=== PATIENT | female | born 1965 | race Caucasian/White ===

== ENCOUNTER → 2017-05-17 | Outpatient (CLI) | payer OTHER ==
[2017-05-18 00:48] LABS: RNP AB Interpretation NEGATIVE (NEGATIVE); Scleroderma SC-70 Ab Interp NEGATIVE (NEGATIVE)
== END | disposition home or self-care (01) ==
LOC: LABWHC1 16:13
PROVIDERS: ATTEND Internal Medicine
DX: M79.7 Fibromyalgia (principal)
CPT/HCPCS: 36415; 86225; 86235; 86698

== ENCOUNTER → 2017-05-22 | Outpatient (CLI) | payer OTHER ==
--- NOTE | 2017-05-23 10:22 | MM ---
Reason for exam: screening (asymptomatic). Last mammogram was performed 1 year and 9 months ago. History: Family history of breast cancer in cousin at age 44. Took hormonal contraceptives for 3 years. Physical Findings: A clinical breast exam by your physician is recommended on an annual basis and results should be correlated with mammographic findings. MG Screening Mammo w CAD Bilateral CC and MLO view(s) were taken. Prior study comparison: August 31, 2015, bilateral MG 3d screening mammo w/cad. August 04, 2014, bilateral MG screening mammo w CAD. No suspicious abnormality. No significant changes when compared with prior studies. ASSESSMENT: Negative, BI-RAD 1 RECOMMENDATION: Routine screening mammogram of both breasts in 1 year.
== END | disposition home or self-care (01) ==
LOC: RADMAMWWP 09:18
PROVIDERS: ATTEND Internal Medicine
DX: Z12.31 Encounter for screening mammogram for malignant neoplasm of breast (principal)

== ENCOUNTER → 2017-07-17 | Outpatient (CLI) | payer OTHER ==
--- NOTE | 2017-07-17 10:10 | US ---
EXAMINATION TYPE: US abdomen complete DATE OF EXAM: 07/17/2017 COMPARISON: NONE CLINICAL HISTORY: Abnormal Results Liver Function R94.5. Cholecystectomy, elevated liver enzymes EXAM MEASUREMENTS: Liver Length: 18.7 cm Gallbladder Wall: Surgically absent CBD: 0.8 cm Spleen: 10.2 cm Right Kidney: 10.3 x 4.0 x 5.7 cm Left Kidney: 10.6 x 4.6 x 4.6 cm Pancreas: visualized portions appear wnl Liver: enlarged Gallbladder: Surgically absent Evidence for sonographic Marte's sign: no CBD: wnl Spleen: wnl Right Kidney: no evidence of hydronephrosis or mass Left Kidney: limited evaluation due to overlying bowel content, visualized portions show no evidence of hydronephrosis or mass Upper IVC: wnl Abd Aorta: wnl The liver is homogenous. The intrahepatic portion of the IVC and visualized abdominal aorta are with in normal limits. The gallbladder is surgically absent. Common bile duct is within normal limits aft er cholecystectomy. The visualized portions of the pancreas are homogenous. The spleen is unremarka ble. Kidneys are symmetric and free of hydronephrosis. No renal lesions are seen. IMPRESSION: Possible hepatomegaly or prominent right hepatic lobe. No worrisome intrahepatic mass or ductal dilatation is seen.
== END | disposition home or self-care (01) ==
LOC: RADUSWWP 08:56
PROVIDERS: ATTEND Internal Medicine
DX: R94.5 Abnormal results of liver function studies (principal)
CPT/HCPCS: 76700

== ENCOUNTER → 2018-08-04 | Outpatient (CLI) | payer OTHER ==
[2018-08-04 11:16] LABS: Basophils % (A) 1 %; Eosinophils # (A) 0.1 k/uL (0-0.7); Eosinophils % (A) 3 %; HCT 40.8 % (34.0-46.0); HGB 14.1 gm/dL (11.4-16.0); Lymphocytes # (A) 1.4 k/uL (1.0-4.8); Lymphocytes % (A) 35 %; MCH 31.8 pg (25.0-35.0); MCHC 34.5 g/dL (31.0-37.0); MCV 92.1 fL (80.0-100.0); Mean Platelet Volume 7.2; Monocytes # (A) 0.4 k/uL (0-1.0); Monocytes % (A) 9 %; Neutrophils % (A) 50 %; Platelet Count 341 k/uL (150-450); RBC 4.43 m/uL (3.80-5.40)
[2018-08-04 11:25] LABS: Appearance,Urine Clear (Clear); Bilirubin,Urine Negative (Negative); Blood,Urine Negative (Negative); Color,Urine Light Yellow; Glucose,Urine (UA) Negative (Negative); Ketones,Urine Negative (Negative); Leukocyte Esterase,Urine Small (Negative); Nitrite,Urine Negative (Negative); PH, Urine 7.5 (5.0-8.0); Protein,Urine Negative (Negative); RBC,Urine <1 /hpf (0-5); Specific Gravity,Urine 1.005 (1.001-1.035); Squamous Epithelial Cell,Urine 2 /hpf (0-4); Urobilinogen,Urine <2.0 mg/dL (<2.0); WBC,Urine <1 /hpf (0-5)
[2018-08-04 11:52] LABS: ALT 21 U/L (9-52); AST 22 U/L (14-36); Albumin 4.1 g/dL (3.5-5.0); Alkaline Phosphatase 79 U/L (38-126); Anion Gap 8 mmol/L; Blood Urea Nitrogen 12 mg/dL (7-17); Calcium 9.9 mg/dL (8.4-10.2); Carbon Dioxide 26 mmol/L (22-30); Chloride 105 mmol/L (98-107); Cholesterol 176 mg/dL (<200); Creatine Kinase 46 U/L (30-135); Glucose 102 mg/dL (74-99); HDL Cholesterol 82 mg/dL (40-60); LDL Cholesterol,Calculated 84 mg/dL (0-99); Potassium 4.7 mmol/L (3.5-5.1); Sodium 139 mmol/L (137-145); Total Bilirubin 1.9 mg/dL (0.2-1.3); Total Protein 7.5 g/dL (6.3-8.2); Triglycerides 52 mg/dL (<150); Uric Acid 3.7 mg/dL (3.7-7.4)
--- NOTE | 2018-08-04 14:57 | XR ---
Left knee HISTORY: Left knee pain 3 views of the left knee Tricompartmental joint space marginal spurring is present, loss of joint space present in the medial compartment and greater at the patellofemoral joint. Alignment and bone mineralization are maintained . There is soft tissue swelling. No evident joint effusion. Osseous and present within the soft tissues. IMPRESSION: Osteoarthritis and additional findings above.
[2018-08-04 22:53] LABS: Hemoglobin A1C 4.3 % (4.0-6.0)
== END ==
LOC: RADXRMAIN 10:13
PROVIDERS: ATTEND Internal Medicine
DX: M17.12 Unilateral primary osteoarthritis, left knee (principal); G25.81 Restless legs syndrome; F41.9 Anxiety disorder, unspecified
CPT/HCPCS: 80053; 80061; 81001; 82306; 82550; 83036; 84439; 84443; 84550; 85025

== ENCOUNTER → 2019-03-09 | Outpatient (CLI) | payer OTHER ==
[2019-03-09 11:24] LABS: Basophils % (A) 1 %; Eosinophils # (A) 0.1 k/uL (0-0.7); Eosinophils % (A) 2 %; HCT 41.1 % (34.0-46.0); HGB 13.9 gm/dL (11.4-16.0); Lymphocytes # (A) 1.2 k/uL (1.0-4.8); Lymphocytes % (A) 29 %; MCH 31.1 pg (25.0-35.0); MCHC 33.7 g/dL (31.0-37.0); MCV 92.2 fL (80.0-100.0); Mean Platelet Volume 7.1; Monocytes # (A) 0.3 k/uL (0-1.0); Monocytes % (A) 8 %; Neutrophils # (A) 2.1 k/uL (1.3-7.7); Neutrophils % (A) 55 %; Platelet Count 302 k/uL (150-450); RBC 4.46 m/uL (3.80-5.40); RDW 13.1 % (11.5-15.5); WBC 3.9 k/uL (3.8-10.6)
[2019-03-09 15:50] LABS: Vitamin D 25 Hydroxy 27.4 ng/mL (30.0-100.0)
[2019-03-09 15:57] LABS: African American GFR (CKD) 116.3 (60.0-200.0); Albumin 4.2 g/dL (3.80-4.90); Albumin/Globulin Ratio 1.83 (1.60-3.17); Anion Gap 6.6 mmol/L (4.00-12.00); Calcium 9.4 mg/dL (8.7-10.3); Carbon Dioxide 27.4 mmol/L (21.6-31.8); Globulin 2.3 g/dL (1.6-3.3); Total Bilirubin 1.2 mg/dL (0.2-1.2); Total Protein 6.5 g/dL (6.2-8.2)
[2019-03-09 16:20] LABS: T4, Free (Free Thyroxine) 0.9 ng/dL (0.80-1.80)
[2019-03-09 17:17] LABS: Hemoglobin A1C 4.7 % (4.0-6.0)
== END | disposition home or self-care (01) ==
LOC: LABWHC1 10:34
PROVIDERS: ATTEND Internal Medicine
DX: K58.0 Irritable bowel syndrome with diarrhea (principal); E78.5 Hyperlipidemia, unspecified; N95.1 Menopausal and female climacteric states; E55.9 Vitamin D deficiency, unspecified
CPT/HCPCS: 36415; 80053; 80061; 82306; 83001; 83002; 83036; 84439; 84443; 85025

== ENCOUNTER → 2019-10-12 | Outpatient (CLI) | payer OTHER ==
--- NOTE | 2019-10-13 10:37 | MM ---
Reason for exam: screening (asymptomatic). Last mammogram was performed 2 years and 5 months ago. History: Patient is postmenopausal. Family history of breast cancer in mother at age 74 and breast cancer in cousin at age 44. Took hormonal contraceptives for 3 years. Physical Findings: A clinical breast exam by your physician is recommended on an annual basis and results should be correlated with mammographic findings. MG Screening Mammo w CAD Bilateral CC and MLO view(s) were taken. Prior study comparison: May 22, 2017, bilateral MG screening mammo w CAD. August 31, 2015, bilateral MG 3d screening mammo w/cad. The breast tissue is heterogeneously dense. This may lower the sensitivity of mammography. There is no discrete abnormality. No significant changes when compared with prior studies. ASSESSMENT: Negative, BI-RAD 1 RECOMMENDATION: Routine screening mammogram of both breasts in 1 year.
== END | disposition home or self-care (01) ==
LOC: RADMAMWWP 14:03
PROVIDERS: ATTEND Internal Medicine
DX: Z12.31 Encounter for screening mammogram for malignant neoplasm of breast (principal)
CPT/HCPCS: 77067

== ENCOUNTER → 2019-11-02 | Outpatient (CLI) | payer OTHER ==
--- NOTE | 2019-11-02 14:59 | XR ---
EXAM TYPE: LUMBAR SPINE X RAY SERIES COMPARISON: 08/31/2015 HISTORY: Lower back pain TECHNIQUE: 4 views are submitted. FINDINGS: Alignment is anatomic. The pedicles are intact. The transverse processes are intact. There is no s pondylolisthesis. Punctate densities in the abdomen could be bowel content rather than abdominal peewee cifications. There is severe degenerative disc disease L5-S1 with foraminal encroachment and facet ar thropathy. Moderate degenerative disc disease noted with hypertrophic spurring at remaining levels. N o compression deformities. A tiny well-corticated density off the superior endplate of L4 appears chr onic. Surgical clips in the gallbladder fossa. IMPRESSION: 1. Multilevel moderate to severe degenerative disc disease with most marked findings at L5-S1. Forami nal encroachment noted..
== END | disposition home or self-care (01) ==
LOC: RAD 14:38
PROVIDERS: ATTEND Internal Medicine
DX: M48.07 Spinal stenosis, lumbosacral region (principal); M51.37 Other intervertebral disc degeneration, lumbosacral region
CPT/HCPCS: 72100

== ENCOUNTER → 2020-06-29 | Outpatient (CLI) | payer OTHER ==
--- NOTE | 2020-06-29 13:17 | US ---
EXAMINATION TYPE: US liver DATE OF EXAM: 06/29/2020 COMPARISON: NONE CLINICAL HISTORY: E80.7 Elevated bilirubin. Elevated liver enzymes gallbladder removed EXAM MEASUREMENTS: Liver Length: 17 cm Gallbladder Wall: Surgically absent cm CBD: .7 cm Right Kidney: 10.7 x 4.6 x 4.8 cm Pancreas: Tail obscured by overlying bowel gas Liver: wnl Gallbladder: Surgically absent Evidence for sonographic Marte's sign: No CBD: wnl Right Kidney: wnl IMPRESSION: 1. Hepatomegaly
== END | disposition home or self-care (01) ==
LOC: RADUSWWP 08:14
PROVIDERS: ATTEND Internal Medicine
DX: R16.0 Hepatomegaly, not elsewhere classified (principal)
CPT/HCPCS: 76705

== ENCOUNTER 2020-11-23 08:55 | Day surgery (SDC) | payer OTHER ==
[2020-10-24 09:47] VITALS: BMI 37.8
[~2020-11-23 08:55] MED LIST: LACTATED RINGERS 1,000 ML IV SCH
[2020-11-23 09:44] VITALS: RESP 16; TEMP 98.1
[2020-11-23] MEDS ORDERED: LIDOCAINE 1% (10MG/ML) FOR IV START INTRADERMA ONE (09:46)
[2020-11-23] MEDS ORDERED: PROPOFOL 10 MG/ML 20 ML VIAL IV ONE (10:16)
--- NOTE | 2020-11-23 10:34 | P.PCN ---
Date of Procedure: 11/23/20 Procedure(s) Performed: BRIEF HISTORY: Patient is a 55-year-old pleasant male scheduled for an elective colonoscopy as a part of screening for colorectal neoplasia. PROCEDURE PERFORMED: Colonoscopy. PREOPERATIVE DIAGNOSIS: Screening for colon cancer. IV sedation per Anesthesia. PROCEDURE: After informed consent was obtained, the patient, was brought into the endoscopy unit. IV sedation was administered by Anesthesia under continuous monitoring. Digital rectal examination was normal. Initially the Olympus CF-160 flexible video colonoscope was then inserted in the rectum, gradually advanced into the cecum without any difficulty. Careful examination was performed as the scope was gradually being withdrawn. Ileocecal valve and the appendiceal orifice were visualized and appeared normal. Prep was excellent. Mucosa of the cecum, ascending colon, transverse colon, descending colon, sigmoid colon, and rectum appeared normal. Scattered left-sided diverticulosis seen. Retroflexion was performed in the rectum and no lesions were seen. The patient tolerated the procedure well. IMPRESSION: Normal-appearing colon from rectum to cecum with no evidence of colorectal neoplasia. . Scattered left-sided diverticulosis. RECOMMENDATIONS: Findings of this examination were discussed with the patient as well as a family. She was advised to have a repeat screening colonoscopy in 10 years..
[2020-11-23 10:58] VITALS: BP 140/71; PULSE 65
== END 2020-11-23 11:08 | disposition home or self-care (01) ==
LOC: ORWHC2ENDO 08:55
PROVIDERS: ATTEND Internal Medicine Gastroenterology
DX: Z12.11 Encounter for screening for malignant neoplasm of colon (principal); K57.30 Diverticulosis of large intestine without perforation or abscess without bleeding; Z79.899 Other long term (current) drug therapy; I89.0 Lymphedema, not elsewhere classified; K58.9 Irritable bowel syndrome, unspecified
CPT/HCPCS: J2704; G0121

== ENCOUNTER → 2021-03-29 | Outpatient (CLI) | payer MEDICARE, OTHER ==
[2021-03-29 10:49] LABS: Basophils % (A) 1 %; Eosinophils # (A) 0.1 k/uL (0-0.7); Eosinophils % (A) 1 %; HCT 41.8 % (34.0-46.0); HGB 14.3 gm/dL (11.4-16.0); Lymphocytes # (A) 1.4 k/uL (1.0-4.8); Lymphocytes % (A) 30 %; MCH 32.4 pg (25.0-35.0); MCHC 34.2 g/dL (31.0-37.0); MCV 94.7 fL (80.0-100.0); Mean Platelet Volume 8.3; Monocytes # (A) 0.4 k/uL (0-1.0); Monocytes % (A) 9 %; Neutrophils # (A) 2.6 k/uL (1.3-7.7); Neutrophils % (A) 57 %; Platelet Count 382 k/uL (150-450); RBC 4.42 m/uL (3.80-5.40); RDW 12.9 % (11.5-15.5); WBC 4.6 k/uL (3.8-10.6)
== END | disposition home or self-care (01) ==
LOC: LABPAT 09:22
PROVIDERS: ATTEND Obstetrics & Gynecology Obstetrics
DX: Z01.812 Encounter for preprocedural laboratory examination (principal); N95.0 Postmenopausal bleeding
CPT/HCPCS: 36415; 85025

== ENCOUNTER 2021-04-03 07:04 | Day surgery (SDC) | payer MEDICARE, OTHER ==
[2021-03-31 09:59] VITALS: BMI 37.4
[~2021-04-03 07:04] MED LIST changes: +DEXAMETHASONE SOD PHOSPHATE 4 MG/ML 1 ML VIAL IV ONE; +HYDROmorphone 0.5 MG/0.5 ML SYRINGE IVP PRN; +MIDAZOLAM 2 MG/2 ML VIAL IV PRN; +ONDANSETRON 4 MG/2 ML VIAL IVP ONE; +Pre Op ABX Message 1 EACH MISC MISCELLANE ONE; +SCOPOLAMINE 1.5MG/72HR PATCH TRANSDERM ONE
[2021-04-03] MEDS ORDERED: LACTATED RINGERS 1,000 ML IV ONE (07:26)
[2021-04-03] MEDS ORDERED: PROPOFOL 10 MG/ML 20 ML VIAL IV ONE (08:21)
[2021-04-03] MEDS ORDERED: MIDAZOLAM 2 MG/2 ML VIAL ONE (08:21)
[2021-04-03] MEDS ORDERED: LIDOCAINE 1% INJ 10MG/ML (20 ML MDV) ONE (08:21)
[2021-04-03] MEDS ORDERED: KETOROLAC 15 MG/ML 1 ML VIAL ONE (08:21)
[2021-04-03] MEDS ORDERED: fentaNYL (PF) 50 MCG/ML 2 ML AMP ONE (08:21)
--- NOTE | 2021-04-03 08:36 | P.HPOB ---
History of Present Illness H&P Date: 04/03/21 Chief Complaint: Postmenopausal bleeding, endometrial polyp This is a 55-year-old female who was evaluated for postmenopausal bleeding. Ultrasound noted to endometrial polyps, she has had a single episode of postmenopausal bleeding. Patient denies pelvic pain. She is postmenopausal, and states she is not on any hormone replacement therapy. Review of Systems Constitutional: Denies fatigue, Denies fever Ears, nose, mouth and throat: Denies headache Cardiovascular: Denies leg edema Gastrointestinal: Denies constipation, Denies diarrhea, Denies nausea, Denies vomiting Genitourinary: Reports as per HPI, Denies Past Medical History Past Medical History: Osteoarthritis (OA) History of Any Multi-Drug Resistant Organisms: None Reported Past Surgical History: Cholecystectomy, Tonsillectomy Past Anesthesia/Blood Transfusion Reactions: No Reported Reaction Smoking Status: Never smoker - Past Family History Mother Family Medical History: Cancer Additional Family Medical History / Comment(s): BREAST CANCER Medications and Allergies Home Medications Medication Instructions Recorded Confirmed Type Cholecalciferol [Vitamin D3 (25 50 mcg PO BID 10/24/20 03/31/21 History Mcg = 1000 Iu)] DULoxetine HCL [Cymbalta] 60 mg PO BID 10/24/20 03/31/21 History Etodolac [Lodine] 400 mg PO BID 10/24/20 03/31/21 History Folic Acid 0.4 mg PO DAILY 10/24/20 03/31/21 History Loperamide [Imodium] 2 mg PO BID 10/24/20 03/31/21 History Vitamin B Complex 1 each PO DAILY 10/24/20 03/31/21 History clonazePAM [KlonoPIN] 0.5 mg PO HS 10/24/20 03/31/21 History Allergies Allergy/AdvReac Type Severity Reaction Status Date / Time No Known Allergies Allergy Verified 03/31/21 09:22 Exam Osteopathic Statement: *. No significant issues noted on an osteopathic structural exam other than those noted in the History and Physical/Consult. 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 Assessment and Plan (1) PMB (postmenopausal bleeding) Current Visit: Yes Status: Acute Code(s): N95.0 - POSTMENOPAUSAL BLEEDING SNOMED Code(s): 31246240 (2) Endometrial polyp Current Visit: Yes Status: Acute Code(s): N84.0 - POLYP OF CORPUS UTERI SNOMED Code(s): 42188732 Plan: 55-year-old female with complaints of postmenopausal bleeding. Patient presents to the hospital today for hysteroscopy, dilation and curettage given endometrial polyps visualized on ultrasound and history of post proposal bleeding. Surgery is reviewed and all questions are answered. Patient states understanding and will proceed to the operating suite.
--- NOTE | 2021-04-03 08:53 | P.OP ---
Date of Procedure: 04/03/21 Preoperative Diagnosis: Post menopausal bleeding, endometrial polyps Postoperative Diagnosis: Same Procedure(s) Performed: Hysteroscopy, dilation and curettage Anesthesia: MAC Surgeon: Bridget Osullivan Estimated Blood Loss (ml): 5 IV fluids (ml): 400 Urine output (ml): 100 Pathology: other (Endometrial curettings) Condition: stable Disposition: PACU Indications for Procedure: Post menopausal bleeding, ultrasound revealing endometrial polyps. Operative Findings: Proliferative endometrium Description of Procedure: Patient was taken back to the operating suite where general anesthesia was obtained without difficulty by the anesthesia department. She was prepped and draped in the normal sterile fashion in the dorsal lithotomy position. I [place] catheter was used to drain the bladder clear yellow urine. Weighted speculum posterior vaginal vault. The anterior lip of the cervix was visualized and grasped with a single-tooth tenaculum. The endocervical canal was then dilated. Hysteroscope was placed through the cervix and into the endometrial cavity. The above-noted findings were visualized. Uterine sound was advanced, uterine cavity noted to be 8 cm. A sharp curettage was then performed until gritty texture was noted in all 4 quadrants of the endometrial cavity. A moderate S been was obtained. The single-tooth tenaculum was taken off of the anterior lip of the cervix, hemostasis was appreciated. All instruments removed from the patient's vaginal vault. Patient tolerated procedure well and was taken the recovery room awake in stable condition. All counts were noted to be correct 2 at the end the procedure.
[2021-04-03 09:04] VITALS: TEMP 97.6
[2021-04-03] MEDS ORDERED: ACETAMINOPHEN TAB 500 MG TAB ONE (10:02)
[2021-04-03 10:18] VITALS: RESP 18
[2021-04-03 10:23] VITALS: BP 127/66; PULSE 72
== END 2021-04-03 10:38 | disposition home or self-care (01) ==
LOC: OR 07:04
PROVIDERS: ATTEND Obstetrics & Gynecology Obstetrics
DX: N84.0 Polyp of corpus uteri (principal); M79.7 Fibromyalgia; R59.1 Generalized enlarged lymph nodes; K58.9 Irritable bowel syndrome, unspecified; M19.90 Unspecified osteoarthritis, unspecified site; N95.0 Postmenopausal bleeding; Z80.3 Family history of malignant neoplasm of breast; Z90.49 Acquired absence of other specified parts of digestive tract
CPT/HCPCS: 58563; 88305; J2250; J1100; J2405; J2001; J3010; J1885; J2704; J1170

== ENCOUNTER → 2021-04-18 | Outpatient (CLI) | payer MEDICARE, OTHER ==
--- NOTE | 2021-04-19 10:25 | MM ---
Reason for exam: screening (asymptomatic). Last mammogram was performed 1 year and 6 months ago. History: Patient is postmenopausal. Family history of breast cancer in mother at age 74 and breast cancer in cousin at age 44. Took hormonal contraceptives for 3 years. Physical Findings: A clinical breast exam by your physician is recommended on an annual basis and results should be correlated with mammographic findings. MG 3D Screening Mammo W/Cad Bilateral CC and MLO view(s) were taken. Prior study comparison: October 12, 2019, bilateral MG screening mammo w CAD. May 22, 2017, bilateral MG screening mammo w CAD. The breast tissue is heterogeneously dense. This may lower the sensitivity of mammography. Stable benign calcifications. There is no discrete abnormality. No significant changes when compared with prior studies. ASSESSMENT: Benign, BI-RAD 2 RECOMMENDATION: Routine screening mammogram of both breasts in 1 year.
== END | disposition home or self-care (01) ==
LOC: RADMAMWWP 08:40
PROVIDERS: ATTEND Internal Medicine
DX: Z12.31 Encounter for screening mammogram for malignant neoplasm of breast (principal); Z78.0 Asymptomatic menopausal state; Z80.3 Family history of malignant neoplasm of breast
CPT/HCPCS: 77063; 77067

== ENCOUNTER → 2022-01-12 | Outpatient (CLI) | payer MEDICARE, OTHER ==
--- NOTE | 2022-01-12 09:42 | XR ---
EXAMINATION TYPE: XR wrist complete RT DATE OF EXAM: 01/12/2022 COMPARISON: NONE HISTORY: Pain TECHNIQUE: Four views submitted. FINDINGS: There is narrowing of the first carpal metacarpal joint. There is tiny bony density seen adjacent to the base of the first metacarpal. Remaining osseous structures intact. No evidence of dislocation. IMPRESSION: 1. Osteoarthritis of the first carpal metacarpal joint. 2. There is a tiny bony density seen adjacent to the base of the first metacarpal which could be rela oksana to previous avulsion fractures or trauma correlate clinically.
== END | disposition home or self-care (01) ==
LOC: RADXRMAIN 09:02
PROVIDERS: ATTEND Internal Medicine
DX: M19.041 Primary osteoarthritis, right hand (principal)

== ENCOUNTER → 2023-02-14 | Outpatient (CLI) | payer OTHER ==
--- NOTE | 2023-02-14 14:51 | XR ---
EXAM TYPE: LUMBAR SPINE X RAY SERIES COMPARISON: 11/02/2019 HISTORY: Pain TECHNIQUE: 3 views are submitted. FINDINGS: Alignment is anatomic. The pedicles are intact. The transverse processes are intact. There is mult ilevel moderate to severe degenerative disc disease most marked at L5-S1 with vacuum disc. Multilevel facet arthropathy most marked at L5-S1 with foraminal encroachment suspected. There is a grade 1 anterolisthesis of L4 on L5. Diffuse osteopenia. Radiopaque densities overlying th e abdomen likely related to bowel contents. Postcholecystectomy clips noted. IMPRESSION: 1. Multilevel moderate to severe degenerative disc disease most marked at L5-S1 with suspected forami nal encroachment and severe facet arthropathy. 2. Grade 1 anterolisthesis L4 on L5. Recommend MRI.
== END | disposition home or self-care (01) ==
LOC: RADXRMAIN 14:12
PROVIDERS: ATTEND Internal Medicine
DX: M51.37 Other intervertebral disc degeneration, lumbosacral region (principal); M43.16 Spondylolisthesis, lumbar region; M54.41 Lumbago with sciatica, right side
CPT/HCPCS: 72100

== ENCOUNTER → 2023-04-11 | Outpatient (CLI) | payer OTHER ==
[2023-04-11 09:32] VITALS: BP 114/79; PULSE 78; RESP 15; TEMP 98.1
--- NOTE | 2023-04-11 14:31 | P.PAINPG ---
PQRS Measure Charge Sheet Comment: HISTORY OF PRESENT ILLNESS: 57 yr old female as a referral from presents today w severe and chronic LBP x 1 yr secondary to DDD, spondylosis and facet arthropathy without myelopathy for evaluation. Pt states pain level is provoked at 8/10 in intensity, constant, localized in the lumbar spine, achy in character w shooting pain towards buttocks and BLEs. Pain is provoked by over activity. Pain is alleviated by heat, medications (Tramadol), Biofreeze, repositioning and rest. Pt lives in [place] and does not have a PT facility that accepts her insurance. She can not drive 40 min to [place] for PT twice weekly as she can not sit in a vehicle greater than 10 min due to intractable pain. Oswestry axial pain score at 24. PMH: OA PSH: Cholecystectomy, Tonsillectomy SH: Negative x3. Works in housekeeping. FH: Mo- Breast CA All: See list Meds: See list REVIEW OF ORGAN SYSTEMS: CONSTITUTIONAL: No fevers or chills. No recent weight loss. NEUROLOGICAL: + numbness and tingling along the distal extremities. No seizure disorders or headaches. MUSCULOSKELETAL: + pain PSYCHIATRIC: Denies current depression or suicidal thoughts. Physical Examinations : Constitutional : Cooperative , not in acute distress . Neurologic : Cranial nerve II to XII intact. No focal neurological deficits. Psychiatric : alert & oriented x 3. Matching mood & appropriate affect. Judgment & insight intact. Musculoskeletal : Cervical Spine Motor strength in the deltoid and biceps: Normal right side. Normal Left side Motor strength biceps and the wrist extensors: Normal right side . Normal left side Motor strength in the triceps muscle: Normal right side. Normal left side Deep tendon reflexes: Normal at the biceps. Normal at Brachioradialis. Normal at triceps Vertebral body tenderness to deep palpation over Cervical facet loading test: positive bilaterally Spurling test: positive bilaterally Neck distraction test: positive bilaterally Irma sign: positive bilaterally Lumbar spine Motor strength lower extremities ,thigh and legs 5/5 Right side , 5/5 Left side Deep tendon reflexes : Normal Knee Jerk. Normal Ankle Jerk Vertebral body tenderness over L5 Cortez Test positive Lumbar facet Loading Test: positive Right / positive Left Range of motion of the lumbar spine Flexion 30 degrees, extension 10 degrees Straight Leg Raise test: Left/ Right positive at degree Hector test: positive right / positive left. Severe tenderness over the Sacroiliac joint on the Right / Left sides Gaenslen test: positive bilaterally Seated flexion test: positive bilaterally. Sacral spine : Severe tenderness over the Sacroiliac joint: right side / left side Range of motion: Flexion of the lumbar spine <60 degrees Range of motion: Extension of the lumbar spine <20 degrees Gaenslen's Test positive Tom's Test positive Hector test: positive right side / left side Thigh Thrust Test Sacral Thrust Test Imaging: MRI noncontrast of the lumbar spine from 03/28/23 reviewed Assessment/ Plan : Lumbar stenosis, Lumbar DDD Recommendation of SHAYLA L5-S1. May need a series of injections for optimal pain relief. Risks, benefits of procedure discussed and patient verbalized understanding. Admits to aspirin or anti- coagulant use or medical history of diabetes. Protocol for discontinuation/ continuation of medications yoselin procedure discussed. Minimal anesthesia provided, if clinically indicated, consisting of Versed and Fentanyl. All questions answered. I have spent greater than 30 minutes on patient care today. Dr Chauhan was available by phone for the evaluation of this patient. The time was used to review the medical records including relevant urine studies and Prescription history (MAPs), review of the available imaging, evaluation and examination of the patient, coordination of care with the medical staff and if applicable referring physicians, as well as creation of the medical record Home Medications: Ambulatory Orders Cholecalciferol [Vitamin D3 (25 Mcg = 1000 Iu)] 50 mcg PO BID 10/24/20 DULoxetine HCL [Cymbalta] 60 mg PO BID 10/24/20 Etodolac [Lodine] 400 mg PO BID 10/24/20 Folic Acid 0.4 mg PO DAILY 10/24/20 Loperamide [Imodium] 2 mg PO BID 10/24/20 Vitamin B Complex 1 each PO DAILY 10/24/20 clonazePAM [KlonoPIN] 0.5 mg PO HS 10/24/20 Controlled Substance Measures - Controlled Substance Measures Is patient prescribed a controlled substance at discharge?: No
== END ==
LOC: PNWHC3 08:50
PROVIDERS: ATTEND Anesthesiology
DX: M51.36 Other intervertebral disc degeneration, lumbar region (principal); M48.061 Spinal stenosis, lumbar region without neurogenic claudication
CPT/HCPCS: 99211

== ENCOUNTER 2023-04-30 07:49 | Day surgery (SDC) | payer OTHER ==
[2023-04-30] MEDS ORDERED: LACTATED RINGERS 1,000 ML IV SCH (08:06)
[2023-04-30 08:13] VITALS: TEMP 96.9
[2023-04-30] MEDS ORDERED: IOPAMIDOL M200 10 ML VIAL ONE (08:35)
[2023-04-30] MEDS ORDERED: methylPREDNISolone ACETATE 80 MG/ML 1 ML VIAL ONE (08:35)
--- NOTE | 2023-04-30 08:41 | P.PCN ---
Date of Procedure: 04/30/23 Procedure(s) Performed: PREOPERATIVE DIAGNOSIS: 1- Lumbar Degenerative Disc Diseases 2-Lumbar spondylosis with Facet arthropathy without myelopathy. 3-lumbar spinal stenosis POSTOPERATIVE DIAGNOSIS: 1-lumbar degenerative disc disease. 2-lumbar spondylosis with facet arthropathy without myelopathy. 3-lumbar spinal stenosis. PROCEDURE 1. Lumbar epidural steroid injection under fluoroscopic guidance at the L5-S1 level. (Fluoroscopy imaging was available in radiology department) 2. Lumbar epidurogram. ANESTHESIA: Lidocaine 1% 3 and then only. EBL: Minimal PROCEDURE INDICATION: The patient with low back pain and radiculitis symptoms unresponsive to conservative treatment. Fluoroscopy was used to optimize visualization of the needle placement and to maximize safety. PROCEDURE DESCRIPTION / TECHNIQUE: The patient was seen and identified in the preoperative area. Risks, benefits, complications including but not limited to infections ,bleeding ,allergic reaction to the medications ,nerve damage and not complete pain releife , and alternatives were discussed with the patient. The patient agreed to proceed with the procedure and signed the consent, and vital signs were stable. Patient was taken to the OR and time out was completed. The patient was placed in the prone position on procedure table and a pillow was placed under the abdomen to reduce lumbar lordosis. The lumbosacral area was prepped and draped in the usual sterile fashion.ere closely monitored during the procedure. Vital signs was monitered during the entire procedure. Using anterior-posterior fluoroscopy, the L5-S1 interlaminar space was identified and the skin over this site was marked and then infiltrated with 1% lidocaine subcutaneously. Subsequently, a 20-gauge Tuohy epidural needle was inserted and advanced toward the epidural space using the ``Loss of resistance technique and guided by AP and lateral fluoroscopy. The correct needle position in the epidural space was verified with the injection of 2 mL of the water soluble contrast dye Isovue 200 contrast and observing an excellent epidurogram with the epidural spread of the dye, after negative aspiration for blood and CSF and in the absence of paresthesias. Again after negative aspiration, a 6 ml mixture containing 80 mg of Depo-medrol ( Preservetive Free ), and 2 ml of preservative free Normal Saline, and 2 ml of preservative free lidocaine 1% solution was injected and a washout of epidurogram was seen. Needle was withdrawn intact, skin was cleansed, and bandages were applied. COMPLICATIONS: None DISPOSITION / PLANS: The patient was placed in a supine position and transferred to the recovery area in a stable condition for observation. There was no evidence of lower extremity motor or sensory deficit after the procedure. Patient was discharged from the recovery room after meeting discharge criteria. Home discharge instructions were given to the patient by the staff. The patient was reexamined prior to discharge. The patient will schedule a follow up in the clinic in 2-4 weeks.
[2023-04-30 09:26] VITALS: BP 111/73; PULSE 71; RESP 18
--- NOTE | 2023-04-30 09:31 | FL ---
Intraoperative/procedural fluoroscopic services were provided. Total fluoroscopy time is 2.3 seconds with a total of 1 submitted images to PACS. Please see the operative/procedural note for further deta ils. DAP: [id number] [id number]
== END 2023-04-30 09:31 | disposition home or self-care (01) ==
LOC: ORPAIN 07:49
PROVIDERS: ATTEND Specialist
DX: M51.16 Intervertebral disc disorders with radiculopathy, lumbar region (principal); M47.816 Spondylosis without myelopathy or radiculopathy, lumbar region; M48.061 Spinal stenosis, lumbar region without neurogenic claudication
CPT/HCPCS: 62323; J1040; Q9966

== ENCOUNTER → 2023-06-24 | Outpatient (CLI) | payer OTHER ==
[2023-06-24 10:06] VITALS: BP 126/85; PULSE 96; RESP 16; TEMP 97.8
--- NOTE | 2023-06-24 14:21 | P.PAINPG ---
PQRS Measure Charge Sheet Comment: HISTORY OF PRESENT ILLNESS: 57 yr old female presents today w severe and chronic LBP x 1 yr secondary to DDD, spondylosis and facet arthropathy without myelopathy for evaluation s/p SHAYLA L5-S1 #1. Pt states she experienced 75% pain relief x 7 wks s/p procedure. Pt states pain level is provoked at 9/10 in intensity, constant, localized in the lumbar spine, achy in character w shooting pain towards buttocks and BLEs. Pain is provoked by over activity. Pain is alleviated by heat, medications, Biofreeze, repositioning and rest. Pt lives in [place] and does not have a PT facility that accepts her insurance. She can not drive 40 min to [place] for PT twice weekly as she can not sit in a vehicle greater than 10 min due to intractable pain. Oswestry axial pain score at 15. Interventional procedures include SHAYLA L5-S1 x1 Medications include Tramadol, Biofreeze gel REVIEW OF ORGAN SYSTEMS: CONSTITUTIONAL: No fevers or chills. No recent weight loss. NEUROLOGICAL: + numbness and tingling along the distal extremities. No seizure disorders or headaches. MUSCULOSKELETAL: + pain PSYCHIATRIC: Denies current depression or suicidal thoughts. Physical Examinations : Constitutional : Cooperative , not in acute distress . Neurologic : Cranial nerve II to XII intact. No focal neurological deficits. Psychiatric : alert & oriented x 3. Matching mood & appropriate affect. Judgment & insight intact. Musculoskeletal : Cervical Spine Motor strength in the deltoid and biceps: Normal right side. Normal Left side Motor strength biceps and the wrist extensors: Normal right side . Normal left side Motor strength in the triceps muscle: Normal right side. Normal left side Deep tendon reflexes: Normal at the biceps. Normal at Brachioradialis. Normal at triceps Vertebral body tenderness to deep palpation over Cervical facet loading test: positive bilaterally Spurling test: positive bilaterally Neck distraction test: positive bilaterally Irma sign: positive bilaterally Lumbar spine Motor strength lower extremities ,thigh and legs 5/5 Right side , 5/5 Left side Deep tendon reflexes : Normal Knee Jerk. Normal Ankle Jerk Vertebral body tenderness over L5 Cortez Test positive Lumbar facet Loading Test: positive Right / positive Left Range of motion of the lumbar spine Flexion 30 degrees, extension 10 degrees Straight Leg Raise test: Left< Right positive at <40 degrees Hector test: positive right / positive left. Severe tenderness over the Sacroiliac joint on the Right / Left sides Gaenslen test: positive bilaterally Seated flexion test: positive bilaterally. Sacral spine : Severe tenderness over the Sacroiliac joint: right side / left side Range of motion: Flexion of the lumbar spine <60 degrees Range of motion: Extension of the lumbar spine <20 degrees Gaenslen's Test positive Tom's Test positive Hector test: positive right side / left side Thigh Thrust Test Sacral Thrust Test Imaging: MRI noncontrast of the lumbar spine from 03/28/23 reviewed Assessment/ Plan : Lumbar stenosis, Lumbar DDD Recommendation of SHAYLA L5-S1 #2. May need a series of injections for optimal pain relief. Risks, benefits of procedure discussed and patient verbalized understanding. Protocol for discontinuation/continuation of medications surrounding procedure discussed. All questions answered. I have spent greater than 30 minutes on patient care today. Dr Chauhan was available by phone for the evaluation of this patient. The time was used to revi ew the medical records including relevant urine studies and Prescription history (MAPs), review of the available imaging, evaluation and examination of the patient, coordination of care with the medical staff and if applicable referring physicians, as well as creation of the medical record PQRS Narrative: Hx Alcohol Use (MH) No Home Medications: Ambulatory Orders Cholecalciferol [Vitamin D3 (25 Mcg = 1000 Iu)] 50 mcg PO BID 10/24/20 DULoxetine HCL [Cymbalta] 60 mg PO BID 10/24/20 Etodolac [Lodine] 400 mg PO BID 10/24/20 Folic Acid 0.4 mg PO DAILY 10/24/20 Loperamide [Imodium] 2 mg PO BID PRN 10/24/20 Vitamin B Complex 1 each PO DAILY 10/24/20 clonazePAM [KlonoPIN] 0.5 mg PO HS 10/24/20 Ezetimibe [Zetia] 10 mg PO QAM 04/29/23 Controlled Substance Measures - Controlled Substance Measures Is patient prescribed a controlled substance at discharge?: No
== END ==
LOC: PNWHC3 07:43
PROVIDERS: ATTEND Specialist
DX: M51.36 Other intervertebral disc degeneration, lumbar region (principal); M48.061 Spinal stenosis, lumbar region without neurogenic claudication
CPT/HCPCS: 99211

== ENCOUNTER 2023-07-11 06:53 | Day surgery (SDC) | payer OTHER ==
[~2023-07-11 06:53] MED LIST changes: -DEXAMETHASONE SOD PHOSPHATE 4 MG/ML 1 ML VIAL IV ONE; -HYDROmorphone 0.5 MG/0.5 ML SYRINGE IVP PRN; -MIDAZOLAM 2 MG/2 ML VIAL IV PRN; -ONDANSETRON 4 MG/2 ML VIAL IVP ONE; -Pre Op ABX Message 1 EACH MISC MISCELLANE ONE; -SCOPOLAMINE 1.5MG/72HR PATCH TRANSDERM ONE
[2023-07-11 07:32] VITALS: TEMP 98.7
[2023-07-11] MEDS ORDERED: IOPAMIDOL M200 10 ML VIAL ONE (07:35)
[2023-07-11] MEDS ORDERED: methylPREDNISolone ACETATE 80 MG/ML 1 ML VIAL ONE (07:35)
--- NOTE | 2023-07-11 07:40 | P.PCN ---
Date of Procedure: 07/11/23 Procedure(s) Performed: PREOPERATIVE DIAGNOSIS: 1- Lumbar Degenerative Disc Diseases 2-Lumbar spondylosis with Facet arthropathy without myelopathy. 3-lumbar spinal stenosis POSTOPERATIVE DIAGNOSIS: 1-lumbar degenerative disc disease. 2-lumbar spondylosis with facet arthropathy without myelopathy. 3-lumbar spinal stenosis. PROCEDURE 1. Lumbar epidural steroid injection under fluoroscopic guidance at the L5-S1 level. (Fluoroscopy imaging was available in radiology department) 2. Lumbar epidurogram. ANESTHESIA: Lidocaine 1% 3 and then only. EBL: Minimal PROCEDURE INDICATION: The patient with low back pain and radiculitis symptoms unresponsive to conservative treatment. Fluoroscopy was used to optimize visualization of the needle placement and to maximize safety. PROCEDURE DESCRIPTION / TECHNIQUE: The patient was seen and identified in the preoperative area. Risks, benefits, complications including but not limited to infections ,bleeding ,allergic reaction to the medications ,nerve damage and not complete pain releife , and alternatives were discussed with the patient. The patient agreed to proceed with the procedure and signed the consent, and vital signs were stable. Patient was taken to the OR and time out was completed. The patient was placed in the prone position on procedure table and a pillow was placed under the abdomen to reduce lumbar lordosis. The lumbosacral area was prepped and draped in the usual sterile fashion.ere closely monitored during the procedure. Vital signs was monitered during the entire procedure. Using anterior-posterior fluoroscopy, the L5-S1 interlaminar space was identified and the skin over this site was marked and then infiltrated with 1% lidocaine subcutaneously. Subsequently, a 20-gauge Tuohy epidural needle was inserted and advanced toward the epidural space using the ``Loss of resistance technique and guided by AP and lateral fluoroscopy. The correct needle position in the epidural space was verified with the injection of 2 mL of the water soluble contrast dye Isovue 200 contrast and observing an excellent epidurogram with the epidural spread of the dye, after negative aspiration for blood and CSF and in the absence of paresthesias. Again after negative aspiration, a 6 ml mixture containing 80 mg of Depo-medrol ( Preservetive Free ), and 2 ml of preservative free Normal Saline, and 2 ml of preservative free lidocaine 1% solution was injected and a washout of epidurogram was seen. Needle was withdrawn intact, skin was cleansed, and bandages were applied. COMPLICATIONS: None DISPOSITION / PLANS: The patient was placed in a supine position and transferred to the recovery area in a stable condition for observation. There was no evidence of lower extremity motor or sensory deficit after the procedure. Patient was discharged from the recovery room after meeting discharge criteria. Home discharge instructions were given to the patient by the staff. The patient was reexamined prior to discharge. The patient will schedule a follow up in the clinic in 2-4 weeks.
[2023-07-11 07:57] VITALS: BP 104/71; PULSE 74; RESP 18
--- NOTE | 2023-07-11 08:24 | FL ---
Intraoperative/procedural fluoroscopic services were provided for lumbar epidural steroid injection. Total fluoroscopy time is 2.8 seconds with a total of 1 submitted image to PACS. Total DAP 0.09719 mG ycm2. Please see the operative note for further details.
== END 2023-07-11 08:05 | disposition home or self-care (01) ==
LOC: ORPAIN 06:53
PROVIDERS: ATTEND Specialist
DX: M51.16 Intervertebral disc disorders with radiculopathy, lumbar region (principal); M48.061 Spinal stenosis, lumbar region without neurogenic claudication; M47.26 Other spondylosis with radiculopathy, lumbar region; Z79.1 Long term (current) use of non-steroidal anti-inflammatories (NSAID)
CPT/HCPCS: 62323; J1040; Q9966

== ENCOUNTER → 2023-08-05 | Outpatient (CLI) | payer OTHER ==
[2023-08-05 08:53] VITALS: BP 126/86; PULSE 89; RESP 15; TEMP 98.6
--- NOTE | 2023-08-05 12:47 | P.PAINPG ---
PQRS Measure Charge Sheet Comment: HISTORY OF PRESENT ILLNESS: 57 yr old female presents today w severe and chronic LBP x 1 yr secondary to DDD, spondylosis and facet arthropathy without myelopathy for evaluation s/p SHAYLA L5-S1 #1. Pt states she experienced 80% pain relief x 3 wks s/p procedure. Pt states pain level is provoked at 7/10 in intensity, constant, localized in the lumbar spine, predominantly axial , achy in character without occasional shooting pain. Pain is provoked by over activity. Pain is alleviated by heat, medications, Biofreeze, repositioning and rest. Pt lives in [place] and does not have a PT facility that accepts her insurance. She can not drive 40 min to [place] for PT twice weekly as she can not sit in a vehicle greater than 10 min due to intractable pain. Oswestry axial pain score at 14. Interventional procedures include SHAYLA L5-S1 x2 Medications include Tramadol, Biofreeze gel REVIEW OF ORGAN SYSTEMS: CONSTITUTIONAL: No fevers or chills. No recent weight loss. NEUROLOGICAL: + numbness and tingling along the distal extremities. No seizure disorders or headaches. MUSCULOSKELETAL: + pain PSYCHIATRIC: Denies current depression or suicidal thoughts. Physical Examinations : Constitutional : Cooperative , not in acute distress . Neurologic : Cranial nerve II to XII intact. No focal neurological deficits. Psychiatric : alert & oriented x 3. Matching mood & appropriate affect. Judgment & insight intact. Musculoskeletal : Cervical Spine Motor strength in the deltoid and biceps: Normal right side. Normal Left side Motor strength biceps and the wrist extensors: Normal right side . Normal left side Motor strength in the triceps muscle: Normal right side. Normal left side Deep tendon reflexes: Normal at the biceps. Normal at Brachioradialis. Normal at triceps Vertebral body tenderness to deep palpation over Cervical facet loading test: positive bilaterally Spurling test: positive bilaterally Neck distraction test: positive bilaterally Irma sign: positive bilaterally Lumbar spine Motor strength lower extremities ,thigh and legs 5/5 Right side , 5/5 Left side Deep tendon reflexes : Normal Knee Jerk. Normal Ankle Jerk Vertebral body tenderness over L4 Cortez Test positive Lumbar facet Loading Test: positive Right / positive Left Range of motion of the lumbar spine Flexion 30 degrees, extension 10 degrees Straight Leg Raise test: Left< Right positive at <40 degrees Hector test: positive right / positive left. Severe tenderness over the Sacroiliac joint on the Right / Left sides Gaenslen test: positive bilaterally Seated flexion test: positive bilaterally. Sacral spine : Severe tenderness over the Sacroiliac joint: right side / left side Range of motion: Flexion of the lumbar spine <60 degrees Range of motion: Extension of the lumbar spine <20 degrees Gaenslen's Test positive Tom's Test positive Hector test: positive right side / left side Thigh Thrust Test Sacral Thrust Test Imaging: MRI noncontrast of the lumbar spine from 03/28/23 reviewed Assessment/ Plan : Lumbar stenosis, Lumbar DDD Recommendation of SHAYLA L4-L5 #3. May need a series of injections for optimal pain relief. Risks, benefits of procedure discussed and patient verbalized understanding. Protocol for discontinuation/continuation of medications surrounding procedure discussed. All questions answered. I have spent greater than 30 minutes on patient care today. Dr Chauhan was available by phone for the evaluation of this patient. The time was used to review the medical records including relevant urine studies and Prescription history (MAPs), review of the available imaging, evaluation and examination of the patient, coordination of care with the medical staff and if applicable referring physicians, as well as creation of the medical record - Pain Location Bilateral Lower Back Non-Pharmacological Interventions: Ice, Inactivity, Physical Therapy Pharmacological Interventions: Epidural, Prophylactic Medication PQRS Narrative: Hx Alcohol Use (MH) No Home Medications: Ambulatory Orders Cholecalciferol [Vitamin D3 (25 Mcg = 1000 Iu)] 50 mcg PO BID 10/24/20 DULoxetine HCL [Cymbalta] 60 mg PO BID 10/24/20 Etodolac [Lodine] 400 mg PO BID 10/24/20 Loperamide [Imodium] 2 mg PO BID PRN 10/24/20 Vitamin B Complex 1 each PO DAILY 10/24/20 clonazePAM [KlonoPIN] 0.5 mg PO HS 10/24/20 Ezetimibe [Zetia] 10 mg PO QAM 04/29/23 Vit C(Unk) 1 tab PO DAILY 07/09/23 Controlled Substance Measures - Controlled Substance Measures Is patient prescribed a controlled substance at discharge?: No
== END ==
LOC: PNWHC3 08:00
PROVIDERS: ATTEND Specialist
DX: M51.36 Other intervertebral disc degeneration, lumbar region (principal); M48.061 Spinal stenosis, lumbar region without neurogenic claudication
CPT/HCPCS: 99211

== ENCOUNTER 2023-09-17 09:12 | Day surgery (SDC) | payer OTHER ==
[2023-09-17] MEDS ORDERED: LACTATED RINGERS 1,000 ML IV SCH (09:49)
[2023-09-17 10:17] VITALS: RESP 18; TEMP 98
[2023-09-17] MEDS ORDERED: methylPREDNISolone ACETATE 80 MG/ML 1 ML VIAL ONE (10:35)
[2023-09-17] MEDS ORDERED: IOPAMIDOL M200 10 ML VIAL ONE (10:35)
--- NOTE | 2023-09-17 10:41 | P.PCN ---
Date of Procedure: 09/17/23 Procedure(s) Performed: PREOPERATIVE DIAGNOSIS: 1- Lumbar Degenerative Disc Diseases 2-Lumbar spondylosis with Facet arthropathy without myelopathy. 3-lumbar spinal stenosis POSTOPERATIVE DIAGNOSIS: 1-lumbar degenerative disc disease. 2-lumbar spondylosis with facet arthropathy without myelopathy. 3-lumbar spinal stenosis. PROCEDURE 1. Lumbar epidural steroid injection under fluoroscopic guidance at the L4-5 level. (Fluoroscopy imaging was available in radiology department) 2. Lumbar epidurogram. ANESTHESIA: Lidocaine 1% 3 and then only. EBL: Minimal PROCEDURE INDICATION: The patient with low back pain and radiculitis symptoms unresponsive to conservative treatment. Fluoroscopy was used to optimize visualization of the needle placement and to maximize safety. PROCEDURE DESCRIPTION / TECHNIQUE: The patient was seen and identified in the preoperative area. Risks, benefits, complications including but not limited to infections ,bleeding ,allergic reaction to the medications ,nerve damage and not complete pain releife , and alternatives were discussed with the patient. The patient agreed to proceed with the procedure and signed the consent, and vital signs were stable. Patient was taken to the OR and time out was completed. The patient was placed in the prone position on procedure table and a pillow was placed under the abdomen to reduce lumbar lordosis. The lumbosacral area was prepped and draped in the usual sterile fashion.ere closely monitored during the procedure. Vital signs was monitered during the entire procedure. Using anterior-posterior fluoroscopy, the L4-5 interlaminar space was identified and the skin over this site was marked and then infiltrated with 1% lidocaine subcutaneously. Subsequently, a 20-gauge Tuohy epidural needle was inserted and advanced toward the epidural space using the ``Loss of resistance technique and guided by AP and lateral fluoroscopy. The correct needle position in the epidural space was verified with the injection of 2 mL of the water soluble contrast dye Isovue 200 contrast and observing an excellent epidurogram with the epidural spread of the dye, after negative aspiration for blood and CSF and in the absence of paresthesias. Again after negative aspiration, a 6 ml mixture containing 80 mg of Depo-medrol ( Preservetive Free ), and 2 ml of preservative free Normal Saline, and 2 ml of preservative free lidocaine 1% solution was injected and a washout of epidurogram was seen. Needle was withdrawn intact, skin was cleansed, and bandages were applied. COMPLICATIONS: None DISPOSITION / PLANS: The patient was placed in a supine position and transferred to the recovery area in a stable condition for observation. There was no evidence of lower extremity motor or sensory deficit after the procedure. Patient was discharged from the recovery room after meeting discharge criteria. Home discharge instructions were given to the patient by the staff. The patient was reexamined prior to discharge. The patient will schedule a follow up in the clinic in 2-4 weeks.
[2023-09-17 11:03] VITALS: BP 123/76; PULSE 80
== END 2023-09-17 11:00 | disposition home or self-care (01) ==
LOC: ORPAIN 09:12
PROVIDERS: ATTEND Specialist
DX: M47.816 Spondylosis without myelopathy or radiculopathy, lumbar region (principal); M48.061 Spinal stenosis, lumbar region without neurogenic claudication; M51.36 Other intervertebral disc degeneration, lumbar region
CPT/HCPCS: 62323; J1040; Q9966

== ENCOUNTER → 2023-10-23 | Outpatient (CLI) | payer OTHER ==
[2023-10-23 08:56] VITALS: BP 114/72; PULSE 89; RESP 15; TEMP 98.6
--- NOTE | 2023-10-23 14:47 | P.PAINPG ---
Objective - Vital Signs Vital signs: Intake & Output 10/22/23 10/23/23 10/23/23 18:59 06:59 18:59 Weight 118.841 kg PQRS Measure Charge Sheet Comment: HISTORY OF PRESENT ILLNESS: 57 yr old female presents today w severe and chronic LBP x 1 yr secondary to DDD, spondylosis and facet arthropathy without myelopathy for evaluation s/p SHAYLA L5-S1 #3. Pt states she experienced 0% pain relief s/p procedure. Pt states pain level is provoked at 3/10 in intensity, constant, localized in the lumbar spine, predominantly axial , achy in character without occasional shooting pain. Pain is provoked by over activity. Pain is alleviated by injections, heat, medications, Biofreeze, repositioning and rest. She participates in "disc therapy" 4 times weekly x 12 wks which she is currently in. Pt lives in [place] and does not have a PT facility that accepts her insurance. She can not drive 40 min to [place] for PT twice weekly as she can not sit in a vehicle greater than 10 min due to intractable pain. Oswestry axial pain score at 14. Interventional procedures include SHAYLA L5-S1 x3 Medications include Tramadol, Biofreeze gel, Lyrica #9 (Neurontin not picked up) REVIEW OF ORGAN SYSTEMS: CONSTITUTIONAL: No fevers or chills. No recent weight loss. NEUROLOGICAL: + numbness and tingling along the distal extremities. No seizure disorders or headaches. MUSCULOSKELETAL: + pain PSYCHIATRIC: Denies current depression or suicidal thoughts. Physical Examinations : Constitutional : Cooperative , not in acute distress . Neurologic : Cranial nerve II to XII intact. No focal neurological deficits. Psychiatric : alert & oriented x 3. Matching mood & appropriate affect. Judgment & insight intact. Musculoskeletal : Cervical Spine Motor strength in the deltoid and biceps: Normal right side. Normal Left side Motor strength biceps and the wrist extensors: Normal right side . Normal left side Motor strength in the triceps muscle: Normal right side. Normal left side Deep tendon reflexes: Normal at the biceps. Normal at Brachioradialis. Normal at triceps Vertebral body tenderness to deep palpation over Cervical facet loading test: positive bilaterally Spurling test: positive bilaterally Neck distraction test: positive bilaterally Irma sign: positive bilaterally Lumbar spine Motor strength lower extremities ,thigh and legs 5/5 Right side , 5/5 Left side Deep tendon reflexes : Normal Knee Jerk. Normal Ankle Jerk Vertebral body tenderness over L4 Cortez Test positive Lumbar facet Loading Test: positive Right / positive Left Range of motion of the lumbar spine Flexion 30 degrees, extension 10 degrees Straight Leg Raise test: Left< Right positive at <40 degrees Hector test: positive right / positive left. Severe tenderness over the Sacroiliac joint on the Right / Left sides Gaenslen test: positive bilaterally Seated flexion test: positive bilaterally. Sacral spine : Severe tenderness over the Sacroiliac joint: right side / left side Range of motion: Flexion of the lumbar spine <60 degrees Range of motion: Extension of the lumbar spine <20 degrees Gaenslen's Test positive Tom's Test positive Hector test: positive right side / left side Thigh Thrust Test Sacral Thrust Test Imaging: MRI noncontrast of the lumbar spine from 03/28/23 reviewed Assessment/ Plan : Lumbar stenosis, Lumbar DDD Recommendation of medication management. Neurontin 100mg #60 w 1 RF. Still has 1 fill to be picked up today from the pharmacy. May need a series of injections for optimal pain relief. Narcotic agreement signed 10/23/23. All questions answered. I have spent greater than 30 minutes on patient care today. Dr Chauhan was available by phone for the evaluation of this patient. The time was used to review the medical records including relevant urine studies and Prescription history (MAPs), review of the available imaging, evaluation and examination of the patient, coordination of care with the medical staff and if applicable referring physicians, as well as creation of the medical record PQRS Narrative: Hx Alcohol Use (MH) No Home Medications: Ambulatory Orders Cholecalciferol [Vitamin D3 (25 Mcg = 1000 Iu)] 50 mcg PO BID 10/24/20 DULoxetine HCL [Cymbalta] 60 mg PO BID 10/24/20 Etodolac [Lodine] 400 mg PO BID 10/24/20 Loperamide [Imodium] 2 mg PO BID PRN 10/24/20 Vitamin B Complex 1 each PO DAILY 10/24/20 clonazePAM [KlonoPIN] 0.5 mg PO HS 10/24/20 Ezetimibe [Zetia] 10 mg PO QAM 04/29/23 Vit C(Unk) 1 tab PO DAILY 07/09/23 Gabapentin [Neurontin] 100 mg PO BID 30 Days #60 cap 09/25/23 Controlled Substance Measures - Controlled Substance Measures Is patient prescribed a controlled substance at discharge?: No
== END ==
LOC: PNWHC3 08:30
PROVIDERS: ATTEND Specialist
DX: M51.36 Other intervertebral disc degeneration, lumbar region (principal); M48.061 Spinal stenosis, lumbar region without neurogenic claudication
CPT/HCPCS: 99211

== ENCOUNTER → 2024-03-25 | Outpatient (CLI) | payer BC, OTHER ==
[2024-03-25 07:59] VITALS: BP 131/84; PULSE 85; RESP 16
--- NOTE | 2024-03-25 14:07 | P.PAINPG ---
PQRS Measure Charge Sheet Comment: HISTORY OF PRESENT ILLNESS: A 58 yr old female presents today w severe and chronic LBP x 1 yr secondary to DDD, spondylosis and facet arthropathy without myelopathy for evaluation. Pt states pain level is provoked at 6 /10 in intensity, constant, localized in the lumbar spine, predominantly axial , achy in character without occasional shooting pain. Pain is provoked by over activity. Pain is alleviated by physician guided home exercise regimen every other day since Nov 2023, injections, heat, medications, topical, repositioning and rest. She participates in "disc therapy" 4 times weekly x 12 wks which ended in Nov 2023. Pt lives in [place] and does not have a PT facility that accepts her insurance. She can not drive 40 min to [place] for PT twice weekly as she can not sit in a vehicle greater than 10 min due to intractable pain. Will have repeat MRI of the lumbar spine. Oswestry axial pain score at 17. Interventional procedures include SHAYLA L5-S1 x3 Medications include Tramadol, Biofreeze gel, Lyrica #9 (Neurontin not picked up) REVIEW OF ORGAN SYSTEMS: CONSTITUTIONAL: No fevers or chills. No recent weight loss. NEUROLOGICAL: + numbness and tingling along the distal extremities. No seizure disorders or headaches. MUSCULOSKELETAL: + pain PSYCHIATRIC: Denies current depression or suicidal thoughts. Physical Examinations : Constitutional : Cooperative , not in acute distress . Neurologic : Cranial nerve II to XII intact. No focal neurological deficits. Psychiatric : alert & oriented x 3. Matching mood & appropriate affect. Judgment & insight intact. Musculoskeletal : Cervical Spine Motor strength in the deltoid and biceps: Normal right side. Normal Left side Motor strength biceps and the wrist extensors: Normal right side . Normal left side Motor strength in the triceps muscle: Normal right side. Normal left side Deep tendon reflexes: Normal at the biceps. Normal at Brachioradialis. Normal at triceps Vertebral body tenderness to deep palpation over Cervical facet loading test: positive bilaterally Spurling test: positive bilaterally Neck distraction test: positive bilaterally Irma sign: positive bilaterally Lumbar spine Motor strength lower extremities ,thigh and legs 5/5 Right side , 5/5 Left side Deep tendon reflexes : Normal Knee Jerk. Normal Ankle Jerk Vertebral body tenderness over L4 Cortez Test positive Lumbar facet Loading Test: positive Right / positive Left Range of motion of the lumbar spine Flexion 30 degrees, extension 10 degrees Straight Leg Raise test: Left< Right positive at <40 degrees Hector test: positive right / positive left. Severe tenderness over the Sacroiliac joint on the Right / Left sides Gaenslen test: positive bilaterally Seated flexion test: positive bilaterally. Sacral spine : Severe tenderness over the Sacroiliac joint: right side / left side Range of motion: Flexion of the lumbar spine <60 degrees Range of motion: Extension of the lumbar spine <20 degrees Gaenslen's Test positive Tom's Test positive Hector test: positive right side / left side Thigh Thrust Test Sacral Thrust Test Imaging: MRI noncontrast of the lumbar spine from 03/28/23 reviewed Assessment/ Plan : Lumbar stenosis, Lumbar DDD Recommendation of medication management. Neurontin 100mg #60 w 2 RF. May need a series of injections for optimal pain relief. All questions answered. I have spent greater than 30 minutes on patient care today. Dr Chauhan was available by phone for the evaluation of this patient. The time was used to review the medical records including relevant urine studies and Prescription history (MAPs), review of the available imaging, evaluation and examination of the patient, coordination of care with the medical staff and if applicable referring physicians, as well as creation of the medical record - Pain Location Lower Back Pharmacological Interventions: PRN Medication PQRS Narrative: Hx Alcohol Use (MH) No Home Medications: Ambulatory Orders Cholecalciferol [Vitamin D3 (25 Mcg = 1000 Iu)] 50 mcg PO BID 10/24/20 DULoxetine HCL [Cymbalta] 60 mg PO BID 10/24/20 Etodolac [Lodine] 400 mg PO BID 10/24/20 Loperamide [Imodium] 2 mg PO BID PRN 10/24/20 Vitamin B Complex 1 each PO DAILY 10/24/20 clonazePAM [KlonoPIN] 0.5 mg PO HS 10/24/20 Ezetimibe [Zetia] 10 mg PO QAM 04/29/23 Vit C(Unk) 1 tab PO DAILY 07/09/23 Gabapentin [Neurontin] 100 mg PO BID 30 Days #60 cap 03/25/24 Controlled Substance Measures - Controlled Substance Measures Is patient prescribed a controlled substance at discharge?: No
== END ==
LOC: PNWHC3 07:41
PROVIDERS: ATTEND Specialist
DX: M51.36 Other intervertebral disc degeneration, lumbar region (principal); M47.816 Spondylosis without myelopathy or radiculopathy, lumbar region; M48.061 Spinal stenosis, lumbar region without neurogenic claudication
CPT/HCPCS: 99211

== ENCOUNTER → 2024-07-13 | Outpatient (CLI) | payer BC, OTHER ==
[2024-07-13 08:15] VITALS: BP 105/80; PULSE 80; RESP 16
--- NOTE | 2024-07-13 15:44 | P.PAINPG ---
PQRS Measure Charge Sheet Comment: HISTORY OF PRESENT ILLNESS: A 58 yr old female presents today w severe and chronic LBP > 1 yr secondary to radiculopathy, spondylosis and facet arthropathy without myelopathy for evaluation. Pt states pain level is provoked at 4 /10 in intensity, constant, localized in the lumbar spine, predominantly axial , achy in character without occasional shooting pain. Pain is provoked by over activity. Pain is alleviated by physician guided home exercise regimen every other day since Nov 2023, injections, heat, medications, topical, repositioning and rest. She participates in "disc therapy" 4 times weekly x 12 wks which ended in Nov 2023. Pt lives in [place] and does not have a PT facility that accepts her insurance. She can not drive 40 min to [place] for PT twice weekly as she can not sit in a vehicle greater than 10 min due to intractable pain. Awaiting repeat MRI of the lumbar spine. Interventional procedures include SHAYLA L5-S1 x3 Medications include Tramadol, Biofreeze gel, Lyrica #90 Neurontin 100mg #60 REVIEW OF ORGAN SYSTEMS: CONSTITUTIONAL: No fevers or chills. No recent weight loss. NEUROLOGICAL: + numbness and tingling along the distal extremities. No seizure disorders or headaches. MUSCULOSKELETAL: + pain PSYCHIATRIC: Denies current depression or suicidal thoughts. Physical Examinations : Constitutional : Cooperative , not in acute distress . Neurologic : Cranial nerve II to XII intact. No focal neurological deficits. Psychiatric : alert & oriented x 3. Matching mood & appropriate affect. Judgment & insight intact. Musculoskeletal : Cervical Spine Motor strength in the deltoid and biceps: Normal right side. Normal Left side Motor strength biceps and the wrist extensors: Normal right side . Normal left side Motor strength in the triceps muscle: Normal right side. Normal left side Deep tendon reflexes: Normal at the biceps. Normal at Brachioradialis. Normal at triceps Vertebral body tenderness to deep palpation over Cervical facet loading test: positive bilaterally Spurling test: positive bilaterally Neck distraction test: positive bilaterally Irma sign: positive bilaterally Lumbar spine Motor strength lower extremities ,thigh and legs 5/5 Right side , 5/5 Left side Deep tendon reflexes : Normal Knee Jerk. Normal Ankle Jerk Vertebral body tenderness over L4 Cortez Test positive Lumbar facet Loading Test: positive Right / positive Left Range of motion of the lumbar spine Flexion 30 degrees, extension 10 degrees Straight Leg Raise test: Left< Right positive at <40 degrees Hector test: positive right / positive left. Severe tenderness over the Sacroiliac joint on the Right / Left sides Gaenslen test: positive bilaterally Seated flexion test: positive bilaterally. Sacral spine : Severe tenderness over the Sacroiliac joint: right side / left side Range of motion: Flexion of the lumbar spine <60 degrees Range of motion: Extension of the lumbar spine <20 degrees Gaenslen's Test positive Tom's Test positive Hector test: positive right side / left side Thigh Thrust Test Sacral Thrust Test Imaging: MRI noncontrast of the lumbar spine from 03/28/23 reviewed Assessment/ Plan : Lumbar stenosis, Lumbar radiculopathy Recommendation of medication management. Neurontin 100mg #60 w 2 RF. May need a series of injections for optimal pain relief. All questions answered. I have spent greater than 30 minutes on patient care today. Dr Chauhan was available by phone for the evaluation of this patient. The time was used to review the medical records including relevant urine studies and Prescription history (MAPs), review of the available imaging, evaluation and examination of the patient, coordination of care with the medical staff and if applicable referring physicians, as well as creation of the medical record - Pain Location Lower Back Non-Pharmacological Interventions: Heat, Ice, Physical Therapy Pharmacological Interventions: Scheduled Medication, Topical Medication PQRS Narrative: Hx Alcohol Use (MH) No Home Medications: Ambulatory Orders Cholecalciferol [Vitamin D3 (25 Mcg = 1000 Iu)] 50 mcg PO BID 10/24/20 DULoxetine HCL [Cymbalta] 60 mg PO BID 10/24/20 Etodolac [Lodine] 400 mg PO BID 10/24/20 Loperamide [Imodium] 2 mg PO BID PRN 10/24/20 Vitamin B Complex 1 each PO DAILY 10/24/20 clonazePAM [KlonoPIN] 0.5 mg PO HS 10/24/20 Ezetimibe [Zetia] 10 mg PO QAM 04/29/23 Vit C(Unk) 1 tab PO DAILY 07/09/23 Gabapentin [Neurontin] 100 mg PO BID 30 Days #60 cap 07/13/24 Controlled Substance Measures - Controlled Substance Measures Is patient prescribed a controlled substance at discharge?: No
== END ==
LOC: PNWHC3 07:59
PROVIDERS: ATTEND Specialist
DX: M48.061 Spinal stenosis, lumbar region without neurogenic claudication (principal); M47.26 Other spondylosis with radiculopathy, lumbar region
CPT/HCPCS: 99211

== ENCOUNTER → 2024-10-05 | Outpatient (CLI) | payer OTHER ==
[2024-10-05 07:58] VITALS: BP 124/83; PULSE 85; RESP 16; TEMP 97.5
--- NOTE | 2024-10-05 09:01 | XR ---
EXAMINATION TYPE: XR lumbar spine 2 or 3V DATE OF EXAM: 10/05/2024 CLINICAL HISTORY: pain TECHNIQUE: Three views of the lumbar spine are submitted. COMPARISON: Lumbar spine radiographs 02/14/2023, 11/02/2019 FINDINGS: There are 5 lumbar type vertebral bodies identified. No acute fracture. Levocurvature of the lumbar s pine with apex at L1-L2. Grade 1 anterolisthesis of L4-L5. Vertebral body heights are within normal l imits. Multilevel disc space narrowing with endplate sclerosis. Multilevel facet arthropathy which is most pronounced at L5-S1 with foraminal encroachment suspected. The overlying soft tissue appears unremarkable. IMPRESSION: 1. No acute fracture or dislocation is seen in the lumbar spine. 2. Moderate multilevel degenerative disc disease and facet arthropathy. 3. Similar grade 1 anterolisthesis of L4 on L5 with levoscoliotic curvature of the lumbar spine. [facility], , 10/05/2024 8:58 AM
--- NOTE | 2024-10-05 16:13 | P.PAINPG ---
PQRS Measure Charge Sheet Comment: HISTORY OF PRESENT ILLNESS: A 59 yr old female presents today w severe and chronic LBP > 1 yr secondary to radiculopathy, spondylosis and facet arthropathy without myelopathy for evaluation. Pt states pain level is provoked at 4 /10 in intensity, constant, localized in the lumbar spine, predominantly axial , achy in character w occasional shooting pain towards the LLE. Pain is provoked by over activity. Pain is alleviated by physician guided home exercise regimen every other day since Nov 2023, injections, heat, medications, topical, repositioning and rest. She participates in "disc therapy" 4 times weekly x 12 wks which ended in Nov 2023. Pt lives in [place] and does not have a PT facility that accepts her insurance. She can not drive 40 min to [place] for PT twice weekly as she can not sit in a vehicle greater than 10 min due to intractable pain. Interventional procedures include SHAYLA L5-S1 x3 Medications include Tramadol, Biofreeze gel, Lyrica #90 Neurontin 100mg #60 REVIEW OF ORGAN SYSTEMS: CONSTITUTIONAL: No fevers or chills. No recent weight loss. NEUROLOGICAL: + numbness and tingling along the distal extremities. No seizure disorders or headaches. MUSCULOSKELETAL: + pain PSYCHIATRIC: Denies current depression or suicidal thoughts. Physical Examinations : Constitutional : Cooperative , not in acute distress . Neurologic : Cranial nerve II to XII intact. No focal neurological deficits. Psychiatric : alert & oriented x 3. Matching mood & appropriate affect. Judgment & insight intact. Musculoskeletal : Cervical Spine Motor strength in the deltoid and biceps: Normal right side. Normal Left side Motor strength biceps and the wrist extensors: Normal right side . Normal left side Motor strength in the triceps muscle: Normal right side. Normal left side Deep tendon reflexes: Normal at the biceps. Normal at Brachioradialis. Normal at triceps Vertebral body tenderness to deep palpation over Cervical facet loading test: positive bilaterally Spurling test: positive bilaterally Neck distraction test: positive bilaterally Irma sign: positive bilaterally Lumbar spine Motor strength lower extremities ,thigh and legs 5/5 Right side , 5/5 Left side Deep tendon reflexes : Normal Knee Jerk. Normal Ankle Jerk Vertebral body tenderness over L5 Cortez Test positive Lumbar facet Loading Test: positive Right / positive Left Range of motion of the lumbar spine Flexion 30 degrees, extension 10 degrees Straight Leg Raise test: Left> Right positive at <35 degrees Hector test: positive right / positive left. Severe tenderness over the Sacroiliac joint on the Right / Left sides Gaenslen test: positive bilaterally Seated flexion test: positive bilaterally. Sacral spine : Severe tenderness over the Sacroiliac joint: right side / left side Range of motion: Flexion of the lumbar spine <60 degrees Range of motion: Extension of the lumbar spine <20 degrees Gaenslen's Test positive Tom's Test positive Hector test: positive right side / left side Thigh Thrust Test Sacral Thrust Test Imaging: MRI non contrast of the lumbar spine from 03/28/23 reviewed Assessment/ Plan : Lumbar stenosis, Lumbar radiculopathy Recommendation of medication management and imaging lumbar x ray M54.16. Continue [place] 5/325ng #60, Neurontin 100mg #60 w 1 RF. Opiate/ narcotic agreement sgined 10/05/24. No longer receiving medications from Dr Mckay as he does not accept her new insurance. All questions answered. I have spent greater than 30 minutes on patient care today. Dr Chauhan was available by phone for the evaluation of this patient. The time was used to review the medical records including relevant urine studies and Prescription history (MAPs), review of the available imaging, evaluation and examination of the patient, coordination of care with the medical staff and if applicable referring physicians, as well as creation of the medical record - Pain Location Bilateral Lower Back Non-Pharmacological Interventions: Heat, Ice, Inactivity, Position/Reposition, Sitting Pharmacological Interventions: Epidural, PRN Medication, Scheduled Medication, Topical Medication PQRS Narrative: Hx Alcohol Use (MH) No Home Medications: Ambulatory Orders Cholecalciferol [Vitamin D3 (25 Mcg = 1000 Iu)] 50 mcg PO BID 10/24/20 DULoxetine HCL [Cymbalta] 60 mg PO BID 10/24/20 Etodolac [Lodine] 400 mg PO BID 10/24/20 Loperamide [Imodium] 2 mg PO BID PRN 10/24/20 Vitamin B Complex 1 each PO DAILY 10/24/20 clonazePAM [KlonoPIN] 0.5 mg PO HS 10/24/20 Ezetimibe [Zetia] 10 mg PO QAM 04/29/23 Vit C(Unk) 1 tab PO DAILY 07/09/23 Gabapentin [Neurontin] 100 mg PO BID 30 Days #60 cap 10/05/24 HYDROcodone/APAP 5-325MG [[place] 5-325] 1 tab PO BID PRN 30 Days #60 tab 10/05/24 HYDROcodone/APAP 5-325MG [[place] 5-325] 1 tab PO BID PRN 30 Days #60 tab 10/05/24 Controlled Substance Measures - Controlled Substance Measures Is patient prescribed a controlled substance at discharge?: Yes When asked, does pt state using other controlled substances?: Yes If prescribed controlled substance>3 days was MAPS reviewed?: Yes If Rx opioid, was Start Talking consent form obtained?: Yes Was information provided regarding opioid addiction?: Yes
== END ==
LOC: PNWHC3 07:30
PROVIDERS: ATTEND Specialist
DX: M54.16 Radiculopathy, lumbar region (principal); M48.061 Spinal stenosis, lumbar region without neurogenic claudication
CPT/HCPCS: 72100; 99211

== ENCOUNTER → 2024-11-30 | Outpatient (CLI) | payer OTHER ==
[2024-11-30 08:08] VITALS: BP 114/78; PULSE 79; RESP 16
--- NOTE | 2024-11-30 15:15 | P.PAINPG ---
PQRS Measure Charge Sheet Comment: HISTORY OF PRESENT ILLNESS: A 59 yr old female presents today w severe and chronic LBP > 1 yr secondary to radiculopathy, spondylosis and facet arthropathy without myelopathy for evaluation. Pt states pain level is provoked at 4 /10 in intensity, constant, localized in the lumbar spine, predominantly axial , achy in character w occasional shooting pain towards the LLE. Pain is provoked by over activity. Pain is alleviated by physician guided home exercise regimen every other day since Nov 2023, injections, heat, medications, topical, repositioning and rest. She participates in "disc therapy" 4 times weekly x 12 wks which ended in Nov 2023. Pt lives in [place] and does not have a PT facility that accepts her insurance. She can not drive 40 min to [place] for PT twice weekly as she can not sit in a vehicle greater than 10 min due to intractable pain. Interventional procedures include SHAYLA L5-S1 x3 Medications include Tramadol, Biofreeze gel, Lyrica #90 Neurontin 100mg #60 REVIEW OF ORGAN SYSTEMS: CONSTITUTIONAL: No fevers or chills. No recent weight loss. NEUROLOGICAL: + numbness and tingling along the distal extremities. No seizure disorders or headaches. MUSCULOSKELETAL: + pain PSYCHIATRIC: Denies current depression or suicidal thoughts. Physical Examinations : Constitutional : Cooperative , not in acute distress . Neurologic : Cranial nerve II to XII intact. No focal neurological deficits. Psychiatric : alert & oriented x 3. Matching mood & appropriate affect. Judgment & insight intact. Musculoskeletal : Cervical Spine Motor strength in the deltoid and biceps: Normal right side. Normal Left side Motor strength biceps and the wrist extensors: Normal right side . Normal left side Motor strength in the triceps muscle: Normal right side. Normal left side Deep tendon reflexes: Normal at the biceps. Normal at Brachioradialis. Normal at triceps Vertebral body tenderness to deep palpation over Cervical facet loading test: positive bilaterally Spurling test: positive bilaterally Neck distraction test: positive bilaterally Irma sign: positive bilaterally Lumbar spine Motor strength lower extremities ,thigh and legs 5/5 Right side , 5/5 Left side Deep tendon reflexes : Normal Knee Jerk. Normal Ankle Jerk Vertebral body tenderness over L5 Cortez Test positive Lumbar facet Loading Test: positive Right / positive Left Range of motion of the lumbar spine Flexion 30 degrees, extension 10 degrees Straight Leg Raise test: Left> Right positive at <35 degrees Hector test: positive right / positive left. Severe tenderness over the Sacroiliac joint on the Right / Left sides Gaenslen test: positive bilaterally Seated flexion test: positive bilaterally. Sacral spine : Severe tenderness over the Sacroiliac joint: right side / left side Range of motion: Flexion of the lumbar spine <60 degrees Range of motion: Extension of the lumbar spine <20 degrees Gaenslen's Test positive Tom's Test positive Hector test: positive right side / left side Thigh Thrust Test Sacral Thrust Test Imaging: MRI non contrast of the lumbar spine from 03/28/23 reviewed X ray lumbar spine from 10/05/24 reviewed Assessment/ Plan : Lumbar stenosis, L4-L5 anterolisthesis Recommendation of medication management and imaging lumbar MRI M54.16. Continue [place] 5/325ng #60, Neurontin 100mg #60 w 1 RF. Opiate/ narcotic agreement sgined 10/05/24. Repeat UDS collected 11/30/24. All questions answered. I have spent greater than 30 minutes on patient care today. Dr Chauhan was available by phone for the evaluation of this patient. The time was used to review the medical records including relevant urine studies and Prescription history (MAPs), review of the available imaging, evaluation and examination of the patient, coordination of care with the medical staff and if applicable referring physicians, as well as creation of the medical record PQRS Narrative: Narcotic Agreement Date Signed 10/05/24 Hx Alcohol Use (MH) Yes: SOCIAL Home Medications: Ambulatory Orders Cholecalciferol [Vitamin D3 (25 Mcg = 1000 Iu)] 50 mcg PO BID 10/24/20 DULoxetine HCL [Cymbalta] 60 mg PO BID 10/24/20 Etodolac [Lodine] 400 mg PO BID 10/24/20 Loperamide [Imodium] 2 mg PO BID PRN 10/24/20 Vitamin B Complex 1 each PO DAILY 10/24/20 clonazePAM [KlonoPIN] 0.5 mg PO HS 10/24/20 Ezetimibe [Zetia] 10 mg PO QAM 04/29/23 Vit C(Unk) 1 tab PO DAILY 07/09/23 Gabapentin [Neurontin] 100 mg PO BID 30 Days #60 cap 10/05/24 HYDROcodone/APAP 5-325MG [[place] 5-325] 1 tab PO BID PRN 30 Days #60 tab 11/30/24 HYDROcodone/APAP 5-325MG [[place] 5-325] 1 tab PO BID PRN 30 Days #60 tab 11/30/24 Controlled Substance Measures - Controlled Substance Measures Is patient prescribed a controlled substance at discharge?: Yes When asked, does pt state using other controlled substances?: No If prescribed controlled substance>3 days was MAPS reviewed?: Yes
== END ==
LOC: PNWHC3 07:30
PROVIDERS: ATTEND Specialist
DX: M48.061 Spinal stenosis, lumbar region without neurogenic claudication (principal); M47.26 Other spondylosis with radiculopathy, lumbar region; M43.16 Spondylolisthesis, lumbar region
CPT/HCPCS: 80307; 99212